=== PATIENT | male | born 1990 | race African-American/Black ===

== ENCOUNTER 2019-03-23 22:52 | Emergency (ER) | payer OTHER ==
[~2019-03-23] VITALS: Ht 195.6 cm; Wt 75.7 kg
[2019-03-23] MEDS ORDERED: MORPHINE SULFATE 4 MG/1 ML DISP.SYRIN IM ONE (23:30)
[2019-03-23] MEDS ORDERED: MORPHINE SULFATE 2 MG/1 ML DISP.SYRIN ONE (23:43)
[2019-03-23] MEDS ORDERED: MORPHINE SULFATE 4 MG/1 ML DISP.SYRIN ONE (23:43)
--- NOTE | 2019-03-24 00:26 | NUR ---
Pt in CT scan
[2019-03-24] MEDS ORDERED: MORPHINE SULFATE 4 MG/1 ML DISP.SYRIN IM ONE (01:30)
[2019-03-24] MEDS ORDERED: MORPHINE SULFATE 2 MG/1 ML DISP.SYRIN ONE (01:38)
[2019-03-24] MEDS ORDERED: MORPHINE SULFATE 4 MG/1 ML DISP.SYRIN ONE (01:38)
--- NOTE | 2019-03-24 01:47 | NUR ---
Patient discharged to home in stable conditon. Written and verbal after care instructions given. Patient verbalizes understanding of instructions. Patient ambulated out of ER with stable gait.
--- NOTE | 2019-03-24 01:47 | NUR ---
Left arm sling in place per ER MD orders, no complications noted. Addendum: 03/24/19 at 0152 by HERRERA CMS DANIELL
[2019-03-24 01:49] VITALS: BP 128/74
== END 2019-03-24 01:59 | disposition home or self-care (01) ==
LOC: ER 22:54
DX: S42.402A Unspecified fracture of lower end of left humerus, initial encounter for closed fracture (principal); S60.420A Blister (nonthermal) of right index finger, initial encounter; S60.422A Blister (nonthermal) of right middle finger, initial encounter; S09.90XA Unspecified injury of head, initial encounter; M25.552 Pain in left hip; F17.290 Nicotine dependence, other tobacco product, uncomplicated; Z88.8 Allergy status to other drugs, medicaments and biological substances; V47.6XXA Car passenger injured in collision with fixed or stationary object in traffic accident, initial encounter; Y93.89 Activity, other specified; Y92.89 Other specified places as the place of occurrence of the external cause; Y99.8 Other external cause status
CPT/HCPCS: 70450; 70486; 71045; 72125; 73030; 73080; 73502; 96372 ×2; 99284; 99406; J2270 ×4; A4663